=== PATIENT | male | born 1970 | race Caucasian/White ===

== ENCOUNTER 2016-08-12 12:27 | Day surgery (SDC) | payer BC ==
[~2016-08-12] VITALS: Ht 175.3 cm; Wt 95.3 kg
[2016-08-12] MEDS ORDERED: SEVOFLURANE 15 MIN GAS INH ONE (14:05)
[2016-08-12] MEDS ORDERED: MIDAZOLAM HCL 5 MG/5 ML VIAL IVP ONE (14:05)
[2016-08-12] MEDS ORDERED: ONDANSETRON HCL 4 MG/2 ML VIAL IVP ONE (14:05)
[2016-08-12] MEDS ORDERED: CEFAZOLIN 2 GM IVPB PREMIX 50 ML IV ONE (14:05)
[2016-08-12] MEDS ORDERED: ROCURONIUM BROMIDE 10 MG/ML (ZEMURON) IV ONE (14:05)
[2016-08-12] MEDS ORDERED: GLYCOPYRROLATE 0.2 MG/ML VIAL IJ ONE (14:05)
[2016-08-12] MEDS ORDERED: fentaNYL CITRATE 250 MCG/5 ML AMP IV ONE (14:05)
[2016-08-12] MEDS ORDERED: NEOSTIGMINE METHYLSULFATE 1 MG/ML, 10 ML VIAL IVP ONE (14:05)
[2016-08-12] MEDS ORDERED: POLYMYXIN 500,000/BACIT.10,000 UNITS in NS IRR 1 L IR ONE (14:17)
[2016-08-12] MEDS ORDERED: LR 1,000 ML IV SCH (14:45)
[2016-08-12] MEDS ORDERED: MORPHINE 2 MG/ML INJ. SYRINGE IVP PRN ×3 (14:45)
[2016-08-12] MEDS ORDERED: METOCLOPRAMIDE HCL 10 MG/2 ML VIAL IVP PRN (14:45)
[2016-08-12] MEDS ORDERED: MORPHINE 4 MG/ML INJ. SYRINGE ONE (15:37)
[2016-08-12 16:27] VITALS: BP_SYST 120
== END 2016-08-12 17:12 | disposition home or self-care (01) ==
LOC: SDS 12:27 → SMU 12:27 → SDS 17:12
PROVIDERS: ATTEND Orthopaedic Surgery
DX: S86.012A Strain of left Achilles tendon, initial encounter (principal); W19.XXXA Unspecified fall, initial encounter; Y93.9 Activity, unspecified; Y92.89 Other specified places as the place of occurrence of the external cause; Y99.9 Unspecified external cause status; I10 Essential (primary) hypertension; E78.00 Pure hypercholesterolemia, unspecified; E66.9 Obesity, unspecified; E11.9 Type 2 diabetes mellitus without complications
CPT/HCPCS: 27650; 82962; J0690; J2250; J2270; J2405; J2710; J3010; J3490; J7120